=== PATIENT | male | born 1975 | race Caucasian/White ===

== ENCOUNTER 2019-01-15 21:15 | Observation (INO) | payer SELFPAY ==
[2019-01-15] MEDS ORDERED: 0.9 % SODIUM CHLORIDE 1,000 ML BAG IV ONE (22:48)
[2019-01-15] MEDS ORDERED: ONDANSETRON HCL IV 4 MG/2 ML VIAL IVP ONE (22:48)
[2019-01-15] MEDS ORDERED: MORPHINE SULFATE 10 MG/ML VIAL IVP ONE (22:48)
[2019-01-15 22:51] LABS: URINE APPEARANCE CLEAR; URINE BILIRUBIN NEGATIVE (NEGATIVE); URINE BLOOD NEGATIVE (NEGATIVE); URINE COLOR YELLOW; URINE GLUCOSE (UA) NEGATIVE (NEGATIVE); URINE KETONE NEGATIVE (NEGATIVE); URINE LEUKOCYTE ESTERASE NEGATIVE (NEGATIVE); URINE NITRITE NEGATIVE (NEGATIVE); URINE PROTEIN NEGATIVE (NEGATIVE); URINE UROBILINOGEN 0.2 E.U./dL (0.20 - 1.00)
[2019-01-15 22:51] LABS: BASO % 0.3 % (0-6); EOS % 1.3 % (0-6); GRAN % 64.8 % (47-80); HEMATOCRIT 46.7 % (42.0-52.0); HEMOGLOBIN 15.9 gm/dl (14.0-18.0); LYMPH % 26.5 % (16-45); MEAN CELL VOLUME 87.1 fl (81-97); MEAN CORPUSCULAR HEMOGLOBIN 29.7 pg (27-33); MEAN PLATELET VOLUME 9.8 fl (7.4-10.4); MONO % 7.1 % (0-9); PLATELET COUNT 289 K/uL (130-400); RED BLOOD COUNT 5.36 M/uL (4.40-5.70); RED CELL DISTRIBUTION WIDTH 12.6 % (11.5-14.5); WHITE BLOOD COUNT W/O DIFF 9.2 K/uL (4.2-12.2)
--- NOTE | 2019-01-15 22:52 | Emergency Department Record ---
History of Present Illness - General Stated Complaint: ABD PAIN Time Seen by Provider: 01/15/19 22:47 Source: Patient, Family Mode of Arrival: Ambulatory Limitations: No limitations - History of Present Illness Initial Comments: 43 yo male presents with lower abdominal pain for the last 3-4 days. He has a history of diverticulosis and diverticulitis over the last 8 years. He has had aching pain for the last 3-4 days with some loose stools. He empirically started Amoxicillin without improvement. His PCP is in [facility]. MD Complaint: Abdominal pain -: Days(s) (3) Location: LLQ Radiation: LLQ Migration to: LLQ Quality: Aching Consistency: Constant Improves With: Nothing Worsens With: Eating Associated Symptoms: Anorexia, Diarrhea (5-6 stools per day) - Related Data Home Medications Medication Instructions Recorded Confirmed Last Taken Amoxicillin/Potassium Clav 1 tab PO BID 01/15/19 01/15/19 01/15/19 [Amox-Clav 875-125 mg Tablet] Allergies Allergy/AdvReac Type Severity Reaction Status Date / Time No Known Drug Allergies Allergy Verified 01/15/19 23:05 Review of Systems Constitutional: Reports: Chills, Fever, Malaise Eyes: Denies: Eye discharge, Eye pain, Photophobia, Vision change ENT: Denies: Congestion, Throat pain Respiratory: Denies: Cough, Dyspnea, Hemoptysis Cardiovascular: Reports: Palpitations (a few weeks ago. he was worked up by cardiology). Denies: Chest pain Endocrine: Reports: Fatigue Gastrointestinal: Reports: As per HPI, Abdominal pain, Diarrhea, Nausea. Denies : Vomiting Genitourinary: Denies: Dysuria, Frequency, Hematuria Musculoskeletal: Denies: Arthralgia, Back pain, Myalgia Skin: Denies: Bruising, Change in color, Rash Neurological: Denies: Headache Psychiatric: Denies: Anxiety Hematological/Lymphatic: Denies: Blood Clots, Easy bleeding, Easy bruising, Swollen glands Physical Exam - General General Appearance: Alert, Oriented x3, Cooperative, No acute distress Limitations: No limitations - Head Head exam: Atraumatic, Normal inspection - Eye Eye exam: Normal appearance. negative: Conjunctival injection - ENT ENT exam: Normal exam Ear exam: Normal external inspection Nasal Exam: Normal inspection Mouth exam: Normal external inspection - Neck Neck exam: Normal inspection - Respiratory Respiratory exam: Normal lung sounds bilaterally. negative: Respiratory distress - Cardiovascular Cardiovascular Exam: Regular rate, Normal rhythm, Normal heart sounds - GI/Abdominal GI/Abdominal exam: Soft, Tenderness (tender LLQ but soft, normal appearance, obese). negative: Distended, Guarding - Rectal Rectal exam: Deferred - exam: Deferred - Extremities Extremities exam: Normal inspection, Full ROM, Normal capillary refill. negative: Tenderness - Back Back exam: Denies: CVA tenderness (R), CVA tenderness (L) - Neurological Neurological exam: Alert - Psychiatric Psychiatric exam: Normal affect, Normal mood. negative: Agitated, Anxious - Skin Skin exam: Dry, Intact, Normal color, Warm Course Vital Signs 01/15/19 22:36 Temperature 98 F Pulse Rate [ 63 Pulse Ox Probe] Respiratory 18 Rate Blood Pressure 150/94 [Left Arm] Pulse Ox 97 - Reevaluation(s) Reevaluation #1: 01/15/19 23:12 The labs were reviewed No acute changes on the CBC, CMP or Lipase The UA is normal without signs of infection 01/16/19 00:[address] impression was reviewed. 1. Fat containing hernia of the anterior midline abdominal wall. 2. Focal wall thickening and inflammatory changes about the mid sigmoid with adjacent adenopathy. Diverticulitis is the leading consideration, however there are features that are concerning for potential primary adenocarcenoma in this patient. sigmoidoscopy warranted after the acute changes have subsided. 01/16/19 01:11 The radiologist contacted me regarding the results. I informed the patient of the results and the need to rule out a cancerous mass as well with sigmoidoscopy once the acute episode has resolved. Given his pain after 4 days of outpatient antibiotics he will be admitted for clear fluids, IV antibiotics. 01/16/19 06:20 Medical Decision Making - Lab Data Result diagrams: 01/15/19 22:40 01/15/19 22:40 Disposition Disposition: Admit Clinical Impression: Diverticulitis Abdominal pain Qualifiers: Abdominal location: unspecified location Qualified Code(s): R10.9 - Unspecified abdominal pain Disposition: Still a Patient at [facility] Decision to Admit: Admit from ER Decision to Admit Date: 01/16/19 Decision to Admit Time: 01:02 Condition: (2) Stable Time of Disposition: 01:02 Quality - Quality Measures Quality Measures: N/A - Blood Pressure Screening Does Patient Have Any of the Following: No Blood Pressure Classification: Pre-Hypertensive BP Reading Systolic Measurement: 147 Diastolic Measurement: 81 Screening for High Blood Pressure: < Pre-Hypertensive BP, F/U Documented > [ G8950] Pre-Hypertensive Follow-up Interventions: Referral to alternative/primary care provider.
[2019-01-15 23:00] LABS: BLOOD UREA NITROGEN 16 mg/dL (6-20); EST GLOMERULAR FILTRATION RATE > 60 mL/min
[2019-01-15 23:01] LABS: LIPASE 31 U/L (13-60); TOTAL PROTEIN 7.7 g/dL (6.6-8.7)
[2019-01-15 23:03] LABS: GLUCOSE,RANDOM 89 mg/dL (74-109)
[2019-01-15 23:05] LABS: ALB/GLOB RATIO 1.2 (1.1-1.8); ALBUMIN 4.2 g/dL (4.0-5.0); ALT/SGPT 29 U/L (<41); AST/SGOT 20 U/L (10.0-50.0)
[2019-01-15 23:06] LABS: ALKALINE PHOSPHATASE 79 U/L (40-129)
[2019-01-16] MEDS ORDERED: METRONIDAZOLE IVPB 500 MG/100 ML BAG IVPB ONE (01:02)
--- NOTE | 2019-01-16 01:06 | Emergency Department Record ---
History of Present Illness - General Chief Complaint: Abdominal Pain Stated Complaint: ABD PAIN Time Seen by Provider: 01/15/19 22:47 Source: Patient, Family Mode of Arrival: Ambulatory Limitations: No limitations - History of Present Illness MD Complaint: Abdominal pain Onset/Timin -: Days(s) (3) Location: LLQ Radiation: LLQ Migration to: LLQ Severity: Moderate Severity scale (1-10): 3 Quality: Aching Consistency: Constant Improves With: Nothing Worsens With: Eating Context: Recent antibiotic use, Other Associated Symptoms: Anorexia, Diarrhea (5-6 stools per day) Treatments Prior to Arrival: Other - Related Data Home Medications Medication Instructions Recorded Confirmed Last Taken Amoxicillin/Potassium Clav 1 tab PO BID 01/15/19 01/15/19 01/15/19 [Amox-Clav 875-125 mg Tablet] Allergies Allergy/AdvReac Type Severity Reaction Status Date / Time No Known Drug Allergies Allergy Verified 01/15/19 23:05 Travel Screening - Travel/Exposure Within Last 30 Days Have you traveled within the last 30 days?: No - Travel/Exposure Within Last Year Have you traveled outside the [place] in the last year?: No - Additonal Travel Details Have you been exposed to anyone with a communicable illness?: No - Travel Symptoms Symptom Screening: None Review of Systems Constitutional: Reports: Chills, Fever, Malaise Eyes: Denies: Eye discharge, Eye pain, Photophobia, Vision change ENT: Denies: Congestion, Throat pain Respiratory: Denies: Cough, Dyspnea, Hemoptysis Cardiovascular: Reports: Palpitations (a few weeks ago. he was worked up by cardiology). Denies: Chest pain Endocrine: Reports: Fatigue Gastrointestinal: Reports: As per HPI, Abdominal pain, Diarrhea, Nausea. Denies : Vomiting Genitourinary: Denies: Dysuria, Frequency, Hematuria Musculoskeletal: Denies: Arthralgia, Back pain, Myalgia Skin: Denies: Bruising, Change in color, Rash Neurological: Denies: Headache Psychiatric: Denies: Anxiety Hematological/Lymphatic: Denies: Blood Clots, Easy bleeding, Easy bruising, Swollen glands Past Medical History - SOCIAL HISTORY Smoking Status: Never smoker Alcohol Use: Heavy Alcohol Use Comment: daily - quit one month ago Drug Use: None - RESPIRATORY Hx Respiratory Disorders: No - CARDIOVASCULAR Hx Cardio Disorders: No - NEURO Hx Neuro Disorders: No - GI Hx GI Disorders: Yes Hx Diverticulitis: Yes - Hx Genitourinary Disorders: No - ENDOCRINE Hx Endocrine Disorders: No - MUSCULOSKELETAL Hx Musculoskeletal Disorders: No - PSYCH Hx Psych Problems: No - HEMATOLOGY/ONCOLOGY Hx Hematology/Oncology Disorders: No Family Medical History Any Significant Family History?: No Physical Exam - General Limitations: No limitations Course Vital Signs 01/15/19 01/15/19 22:36 23:34 Temperature 98 F Pulse Rate [ 63 64 Pulse Ox Probe] Respiratory 18 16 Rate Blood Pressure 150/94 [Left Arm] Blood Pressure 145/89 [Right Arm] Pulse Ox 97 99 Medical Decision Making - Lab Data Result diagrams: 01/15/19 22:40 01/15/19 22:40 Lab Results 01/15/19 01/15/19 01/15/19 Range/Units 20:40 22:40 22:40 WBC 9.2 (4.2-12.2) K/uL RBC 5.36 (4.40-5.70) M/uL Hgb 15.9 (14.0-18.0) gm/dl Hct 46.7 (42.0-52.0) % MCV 87.1 (81-97) fl MCH 29.7 (27-33) pg MCHC 34.0 (32-36) g/dl RDW 12.6 (11.5-14.5) % Plt Count 289 (130-400) K/uL MPV 9.8 (7.4-10.4) fl Gran % 64.8 (47-80) % Lymphocytes % 26.5 (16-45) % Monocytes % 7.1 (0-9) % Eosinophils % 1.3 (0-6) % Basophils % 0.3 (0-6) % Sodium 139 (136-145) mmol/L Potassium 4.2 (3.4-4.5) mmol/L Chloride 102 (98-107) mmol/L Carbon Dioxide 24.0 (22-29) mmol/L Anion Gap 13.0 (7-16) BUN 16 (6-20) mg/dL Creatinine 1.0 (0.7-1.2) mg/dL Estimated GFR > 60 mL/min Random Glucose 89 (74-109) mg/dL Calcium 9.4 (8.6-10.0) mg/dL Total Bilirubin 0.30 (0.2-1.0) mg/dL AST 20 (10.0-50.0) U/L ALT 29 (<41) U/L Alkaline Phosphatase 79 (40-129) U/L Total Protein 7.7 (6.6-8.7) g/dL Albumin 4.2 (4.0-5.0) g/dL Globulin 3.5 (1.4-4.8) gm/dL Albumin/Globulin Ratio 1.2 (1.1-1.8) Lipase 31 (13-60) U/L Urine Color Yellow Urine Appearance Clear Urine pH 5.5 (5.0-8.0) Ur Specific Aubrey >= 1.030 (1.002-1.030) Urine Protein Negative (NEGATIVE) Urine Glucose (UA) Negative (NEGATIVE) Urine Ketones Negative (NEGATIVE) Urine Blood Negative (NEGATIVE) Urine Nitrite Negative (NEGATIVE) Urine Bilirubin Negative (NEGATIVE) Urine Urobilinogen 0.2 (0.20 - 1.00) E.U./dL Ur Leukocyte Esterase Negative (NEGATIVE) Disposition Disposition: Admit Clinical Impression: Diverticulitis Abdominal pain Qualifiers: Abdominal location: unspecified location Qualified Code(s): R10.9 - Unspecified abdominal pain Disposition: Still a Patient at [facility] Decision to Admit: Admit from ER Decision to Admit Date: 01/16/19 Decision to Admit Time: 01:00 Condition: (2) Stable Time of Disposition: 01:00 Quality - Quality Measures Quality Measures: N/A - Blood Pressure Screening Does Patient Have Any of the Following: No Blood Pressure Classification: Pre-Hypertensive BP Reading Systolic Measurement: 147 Diastolic Measurement: 81 Screening for High Blood Pressure: < Pre-Hypertensive BP, F/U Documented > [ G8950] Pre-Hypertensive Follow-up Interventions: Referral to alternative/primary care provider.
[2019-01-16] MEDS ORDERED: MORPHINE SULFATE 10 MG/ML VIAL IVP PRN (01:45)
[2019-01-16] MEDS ORDERED: ONDANSETRON HCL IV 4 MG/2 ML VIAL IVP PRN (01:45)
[2019-01-16] MEDS: POTASSIUM CHLORIDE/D5-0.9%NACL 20 MEQ/1,000 ML BAG IV SCH ×4 (02:15→22:30)
[2019-01-16] MEDS: CIPROFLOXACIN LACTATE/D5W 400 MG/200 ML BAG IVPB SCH ×2 (02:26→15:20)
[2019-01-16] MEDS: METRONIDAZOLE IVPB 500 MG/100 ML BAG IVPB SCH ×2 (09:04→17:35)
--- NOTE | 2019-01-16 11:37 | History & Physical ---
History of Present Illness - Date of Service Date of Service for History & Physical: 01/16/19 - History of Present Illness Admitting Diagnosis: diverticulitis History of Present Illness: 43 yo male presents for diverticulitis with questionable sigmoid mass. 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 Pt has PCP in [place], gets amoxicillin PRN for diverticulitis flares he has 3 per year. 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 01/15/19 Pt presented to [facility] for abd pain, 4 days diarrhea, and nausea. CT shows diverticulitis with microperforations. Sigmoid wall thickening for 7cm , surrounding lump nodes reactive. Possible mass noted with increased number of enlarged lymph nodes ("more numerous than is typical"). Umbilical hernia noted with fat streaking that has "extensive inflammation putamen" but no bowel involvement. WBC 9.2, Hgb 15.9, Hct 46.7, Plt 289 Na 139, K 4.2, BUN 16, Cr 1, GFR >60, glucose 89, LFT normal, lipase 31. UA negative 98F, Hr 63, 150/94, RR 18m, 97% RA pain 12/12 Pt was given 1 L NC, started on cipro 400mg q12h, flaygl 500mg Q8h, morphine 5mg IVP Q4h, zofran 4mg ICP, and cont IVF D5NS with 20K CLD 01/16/19 Pt resting in bed, no acute distress, moving in bed with no difficulties. Pt is tolerating CLD, IVF, and morphine 5mg IVP last dose 8AM. Decreasing morphine to 2mg IVP q4h, continue CLD and consulting Dr Miller for GI r /t infection and possible mass. Continue cipro and flagyl IVPB, zofran PRN. Repeat labs in the AM. Pt is reporting 1 episode of BRB on tissue when wiping 3 days ago but no blood since then. Awaiting GI call back . Additional complications related to difficulties with follow up and insurance issues, will contact care coordinators thursday AM. PCP ([place]) Travel Screening - Travel/Exposure Within Last 30 Days Have you traveled within the last 30 days?: No - Travel/Exposure Within Last Year Have you traveled outside the [place] in the last year?: No - Additonal Travel Details Have you been exposed to anyone with a communicable illness?: No - Travel Symptoms Symptom Screening: Fever (Subjective), Diarrhea, Lack of Appetite Review of Systems Constitutional: Reports: Chills, Fever, Malaise Eyes: Denies: Eye discharge, Eye pain, Photophobia, Vision change ENT: Denies: Congestion, Throat pain Respiratory: Denies: Cough, Dyspnea, Hemoptysis Cardiovascular: Reports: Palpitations (a few weeks ago. he was worked up by cardiology). Denies: Chest pain Endocrine: Reports: Fatigue Gastrointestinal: Reports: As per HPI, Abdominal pain, Diarrhea, Nausea. Denies : Constipation, Hematemesis, Hematochezia, Melena, Vomiting Genitourinary: Denies: Dysuria, Frequency, Hematuria Musculoskeletal: Denies: Arthralgia, Back pain, Myalgia Skin: Denies: Bruising, Change in color, Rash Neurological: Denies: Headache Psychiatric: Denies: Anxiety Hematological/Lymphatic: Denies: Blood Clots, Easy bleeding, Easy bruising, Swollen glands Past Medical History - SOCIAL HISTORY Smoking Status: Never smoker Alcohol Use: None Drug Use: None - RESPIRATORY Hx Respiratory Disorders: No - CARDIOVASCULAR Hx Cardio Disorders: No - NEURO Hx Neuro Disorders: No Hx Headaches: Yes (s/p viral meningitis ) - GI Hx GI Disorders: Yes Hx Diverticulitis: Yes Hx Wt Loss/Wt Gain: Yes (Intentional weight loss approx 20#) - Hx Genitourinary Disorders: No - ENDOCRINE Hx Endocrine Disorders: No - MUSCULOSKELETAL Hx Musculoskeletal Disorders: No - PSYCH Hx Psych Problems: No - HEMATOLOGY/ONCOLOGY Hx Hematology/Oncology Disorders: No Family Medical History Any Significant Family History?: Yes Hx Cancer: Father *Cancer Comment: Colon CA age 65 H&P Meds/Allergies - Allergies Allergies: Allergies Allergy/AdvReac Type Severity Reaction Status Date / Time No Known Drug Allergies Allergy Verified 01/15/19 23:05 - Home Medications Home Medications Medication Instructions Recorded Confirmed Last Taken Amoxicillin/Potassium Clav 1 tab PO BID 01/15/19 01/15/19 01/15/19 [Amox-Clav 875-125 mg Tablet] - Active Medications Active Medications: Current Medications Ciprofloxacin Lactate (Cipro) 400 mg in 200 mls @ 200 mls/hr IVPB Q12H [facility] Stop: 04/19/19 03:01 Last Infusion: 01/16/19 03:30 Dose: Infused Metronidazole/Sodium Chloride (Flagyl) 500 mg in 100 mls @ 100 mls/hr IVPB Q8H [facility] Stop: 01/21/19 09:01 Last Infusion: 01/16/19 10:12 Dose: Infused Potassium Chloride/Dextrose/Sod Cl () 20 meq in 1,000 mls @ 125 mls/hr IV Q8H [facility] Last Admin: 01/16/19 02:15 Dose: 125 mls/hr Morphine Sulfate (Morphine Sulfate) 5 mg IVP Q4H PRN PRN Reason: ABDOMINAL PAIN Last Admin: 01/16/19 07:56 Dose: 5 mg Ondansetron HCl (Zofran) 4 mg IVP Q4H PRN PRN Reason: NAUSEA Physical Exam - Vital Signs Vital Signs: Vital Signs - Last 24 Hrs Temp Pulse Pulse Resp BP BP BP 01/16/19 08:16 97.8 F 59 L 16 125/65 01/16/19 01:39 98 F 87 18 147/81 01/16/19 01:35 98.5 F 60 18 119/72 01/15/19 23:34 64 16 145/89 01/15/19 22:36 98 F 63 18 150/94 Pulse Ox 01/16/19 08:16 96 01/16/19 01:39 99 01/16/19 01:35 98 01/15/19 23:34 99 01/15/19 22:36 97 - General General Appearance: Alert, Oriented x3, Cooperative, No acute distress Limitations: No limitations - Head Head exam: Atraumatic, Normal inspection - Eye Eye exam: Normal appearance. negative: Conjunctival injection - ENT ENT exam: Normal exam Ear exam: Normal external inspection Nasal Exam: Normal inspection Mouth exam: Normal external inspection - Neck Neck exam: Normal inspection - Respiratory Respiratory exam: Normal lung sounds bilaterally. negative: Respiratory distress - Cardiovascular Cardiovascular Exam: Regular rate, Normal rhythm, Normal heart sounds Peripheral Pulses: 2+: Radial (R), Radial (L) - GI/Abdominal GI/Abdominal exam: Soft, Normal bowel sounds, Hernia (ventral, soft dip noted with palpation, bulging with flexing of abd muscles), Tenderness, Other (no TTP , normal appearance, obese). negative: Distended, Guarding - Rectal Rectal exam: Deferred - exam: Deferred - Extremities Extremities exam: Normal inspection, Full ROM, Normal capillary refill. negative: Tenderness - Back Back exam: Denies: CVA tenderness (R), CVA tenderness (L) - Neurological Neurological exam: Alert - Psychiatric Psychiatric exam: Normal affect, Normal mood. negative: Agitated, Anxious - Skin Skin exam: Dry, Intact, Normal color, Warm Results - Labs Result Diagrams: 01/15/19 22:40 01/15/19 22:40 Labs Last 24 Hours: Laboratory Results - last 24 hr 01/15/19 01/15/19 01/15/19 20:40 22:40 22:40 WBC 9.2 RBC 5.36 Hgb 15.9 Hct 46.7 MCV 87.1 MCH 29.7 MCHC 34.0 RDW 12.6 Plt Count 289 MPV 9.8 Gran % 64.8 Lymphocytes % 26.5 Monocytes % 7.1 Eosinophils % 1.3 Basophils % 0.3 Sodium 139 Potassium 4.2 Chloride 102 Carbon Dioxide 24.0 Anion Gap 13.0 BUN 16 Creatinine 1.0 Estimated GFR > 60 Random Glucose 89 Calcium 9.4 Total Bilirubin 0.30 AST 20 ALT 29 Alkaline Phosphatase 79 Total Protein 7.7 Albumin 4.2 Globulin 3.5 Albumin/Globulin Ratio 1.2 Lipase 31 Urine Color Yellow Urine Appearance Clear Urine pH 5.5 Ur Specific Kerrick >= 1.030 Urine Protein Negative Urine Glucose (UA) Negative Urine Ketones Negative Urine Blood Negative Urine Nitrite Negative Urine Bilirubin Negative Urine Urobilinogen 0.2 Ur Leukocyte Esterase Negative - Imaging and Cardiology CT scan - abdomen Status: Report reviewed VTE H&P Assessment - Risk for VTE Risk for VTE: Yes Risk Level: Moderate Risk Assessment Date: 01/16/19 Risk Assessment Time: 11:41 VTE Orders Placed or Will Be Placed: No VTE Reason for No Prophylaxis: Contraindicated (microperforations r/t diverticulitis infection) Plan - Detailed Diagnosis and Plan (1) Diverticulitis Current Visit: Yes Status: Acute Base Code: K57.92 - DVTRCLI OF INTEST, PART UNSP, W/O PERF OR ABSCESS W/O BLEED Comment: 01/16/19 -CT reveals diverticulitis -cipro q12 H, flaygl q8h -zofran and morphine PRN -continue CLD, Dr Miller GI consulted (2) Abdominal pain Current Visit: Yes Status: Acute Qualifiers: Abdominal location: unspecified location Qualified Code(s): R10.9 - Unspecified abdominal pain Base Code: R10.9 - UNSPECIFIED ABDOMINAL PAIN Comment: 01/16/19 -abd pain x 8 yrs, hernia repair 2010 - CT reveals umbilical hernia, may need gen surgery consult f/u -chronic diverticulitis q3/year tx by PCP (3) Hernia Current Visit: Yes Status: Acute Base Code: K46.9 - UNSPECIFIED ABDOMINAL HERNIA WITHOUT OBSTRUCTION OR GANGRENE Comment: 01/16/19 -pt has ventral hernia, currently not incarcerated but abd wall weakness noted with palpation -pt is reporting incarcertion at times -CT shows umbilical hernia with fat streaking consistent with fat nercrosis and chronic abd pain (4) Full code status Current Visit: Yes Status: Acute Base Code: Z78.9 - OTHER SPECIFIED HEALTH STATUS Comment: 01/16/19 -full code (5) DVT prophylaxis Current Visit: Yes Status: Acute Base Code: [id number] - Comment: 01/16/19 SCDs while in bed, no lovenox r/t microperforations noted on CT
[2019-01-16] MEDS ORDERED: MORPHINE SULFATE 10 MG/ML VIAL IM PRN (11:54)
[2019-01-17] MEDS: METRONIDAZOLE IVPB 500 MG/100 ML BAG IVPB SCH ×2 (01:08→09:15)
[2019-01-17] MEDS: CIPROFLOXACIN LACTATE/D5W 400 MG/200 ML BAG IVPB SCH (02:55)
--- NOTE | 2019-01-17 07:28 | CT SCAN REPORT ---
EXAM: CT OF THE ABDOMEN AND PELVIS WITH CONTRAST HISTORY: THIS IS A 43-YEAR-OLD MALE WITH ABDOMINAL PAIN IN THE PERIUMBILICAL REGION. PREVIOUS HERNIA REPAIR. THE PAIN HAS BEEN PRESENT FOR APPROXIMATELY SEVEN DAYS. PATIENT ALSO COMPLAINS OF DIARRHEA. TECHNIQUE: Routine CT images of the abdomen and pelvis were obtained following intravenous administration of contrast, amount and type of contrast is noted in the medical record. FINDINGS: The visualized lung bases are unremarkable. The liver, gallbladder, pancreas, spleen and adrenals are unremarkable. The kidneys enhance and excrete contrast normally. There is a focal region of wall thickening involving the sigmoid colon with surrounding mesocolonic fat stranding. Given that there are a few adjacent colonic diverticula findings suggest diverticulitis. Other infectious or inflammatory processes are also possible. Underlying mass not excluded and follow-up is recommended. Elsewhere, the bowel is unremarkable. The appendix is near the inflammatory change located a bit superiorly though no conclusive evidence for acute appendicitis. The bladder is unremarkable as is the prostate. The aorta enhances normally with contrast and is normal in caliber. There are a few mildly prominent scattered mesenteric lymph nodes which can be seen with mesenteric adenitis. There is a fat containing periumbilical hernia. Fascial defect measures approximately 1.6 x 1.6 cm. The herniated fat demonstrates fat stranding and inflammatory change which can be seen with fat necrosis. There are small bilateral fat containing inguinal hernias, left greater than right. No acute osseous abnormality. IMPRESSION: 1. FOCAL PRESUMED INFLAMMATORY CHANGE IN THE REGION OF THE SIGMOID COLON. THIS COULD RELATE TO DIVERTICULITIS VERSUS OTHER LOCALIZED INFECTIOUS/ INFLAMMATORY CHANGE. PLEASE NOTE UNDERLYING MASS IN THIS REGION NOT EXCLUDED AND FOLLOW-UP IS RECOMMENDED. 2. FAT CONTAINING PERIUMBILICAL HERNIA CONTAINING FAT STRANDING SUGGESTING FAT NECROSIS AND MAY BE A SOURCE OF PAIN. 3. MESENTERIC ADENITIS. JOB NUMBER: [id number] [facility]
[2019-01-17 08:31] LABS: BASO % 0.3 % (0-6); EOS % 1.6 % (0-6); GRAN % 71.1 % (47-80); HEMATOCRIT 42.1 % (42.0-52.0); HEMOGLOBIN 14.3 gm/dl (14.0-18.0); LYMPH % 20.2 % (16-45); MEAN CELL VOLUME 88.4 fl (81-97); MEAN PLATELET VOLUME 9.2 fl (7.4-10.4); MONO % 6.8 % (0-9); PLATELET COUNT 242 K/uL (130-400); RED BLOOD COUNT 4.76 M/uL (4.40-5.70); RED CELL DISTRIBUTION WIDTH 12.5 % (11.5-14.5); WHITE BLOOD COUNT W/O DIFF 6.8 K/uL (4.2-12.2)
[2019-01-17 08:53] LABS: BLOOD UREA NITROGEN 9 mg/dL (6-20); CREATININE 0.9 mg/dL (0.7-1.2); EST GLOMERULAR FILTRATION RATE > 60 mL/min
[2019-01-17 08:56] LABS: GLUCOSE,RANDOM 114 mg/dL (74-109)
[2019-01-17] MEDS ORDERED: METRONIDAZOLE 250 MG TABLET PO SCH (12:00)
[2019-01-17] MEDS ORDERED: CIPROFLOXACIN HCL 500 MG TABLET PO SCH (12:00)
--- NOTE | 2019-01-17 12:09 | Discharge Summary ---
Providers Discharge Summary Date: 01/17/19 Date of admission: 01/16/19 01:14 Expected Date of Discharge: 01/17/19 Attending physician: SRIKANTH HARRIS Primary care physician: PCP in [place] Consults: Consult Orders 01/16/19 11:55 Consult NOW Consulting Provider: JOSE GAY Physician Instructions: Reason For Exam: diverticulitis and possible mass 01/16/19 16:47 Consult NOW Consulting Provider: Theresa Shipman Physician Instructions: Reason For Exam: abd pain 01/17/19 10:49 Consult NOW Consulting Provider: Nba Mckoy Physician Instructions: Reason For Exam: Diverticulitis with possible mass Physical Exam - Vital Signs Vital Signs: Vital Signs - Last 24 Hrs Temp Pulse Resp BP Pulse Ox 01/17/19 09:00 65 16 01/17/19 08:42 97.9 F 65 16 119/75 95 01/17/19 01:00 98.1 F 61 16 122/82 98 01/16/19 16:00 97.7 F 61 17 126/72 93 L - General General Appearance: Alert, Oriented x3, Cooperative, No acute distress Limitations: No limitations - Head Head exam: Atraumatic, Normocephalic, Normal inspection - Eye Eye exam: Normal appearance. negative: Conjunctival injection - ENT ENT exam: Normal exam Ear exam: Normal external inspection Nasal Exam: Normal inspection Mouth exam: Normal external inspection - Neck Neck exam: Normal inspection - Respiratory Respiratory exam: Normal lung sounds bilaterally. negative: Respiratory distress - Cardiovascular Cardiovascular Exam: Regular rate, Normal rhythm, Normal heart sounds Peripheral Pulses: 2+: Radial (R), Radial (L), Dorsalis Pedis (R), Dorsalis Pedis (L) - GI/Abdominal GI/Abdominal exam: Soft, Normal bowel sounds, Hernia (ventral, soft dip noted with palpation, bulging with flexing of abd muscles), Tenderness. negative: Distended, Guarding - Rectal Rectal exam: Deferred - exam: Deferred - Extremities Extremities exam: Normal inspection, Full ROM, Normal capillary refill. negative: Tenderness - Back Back exam: Denies: CVA tenderness (R), CVA tenderness (L) - Neurological Neurological exam: Alert - Psychiatric Psychiatric exam: Normal affect, Normal mood. negative: Agitated, Anxious - Skin Skin exam: Dry, Intact, Normal color, Warm Hospitalization - Hospitalization Admission Diagnosis: diverticulitis - Problem List/Discharge Diagnosis (1) Diverticulitis Current Visit: Yes Status: Acute Base Code: K57.92 - DVTRCLI OF INTEST, PART UNSP, W/O PERF OR ABSCESS W/O BLEED Comment: 01/17/19 -transition to Po abx, pt is vega pay, [employer] has free cipro and [facility] has discounts for flagyl and zofran -Dr Mckoy consulted, f/u 4 weeks in the office after 2 weeks of abx -f/u [facility] 2 weeks for inpt follow up 01/16/19 -CT reveals diverticulitis -cipro q12 H, flaygl q8h -zofran and morphine PRN -continue CLD, Dr Gay GI consulted (2) Abdominal pain Current Visit: Yes Status: Acute Discharge Diagnosis: Abdominal location: unspecified location Qualified Code(s): R10.9 - Unspecified abdominal pain Base Code: R10.9 - UNSPECIFIED ABDOMINAL PAIN Comment: 01/17/19 -pain has been baseline 01/12 or less, no morphine has been needed -d/c with 2 weeks abx 01/16/19 -abd pain x 8 yrs, hernia repair 2010 - CT reveals umbilical hernia, may need gen surgery consult f/u -chronic diverticulitis q3/year tx by PCP (3) Hernia Current Visit: Yes Status: Acute Base Code: K46.9 - UNSPECIFIED ABDOMINAL HERNIA WITHOUT OBSTRUCTION OR GANGRENE Comment: 01/17/19 -baseline, Dr Mckoy consulted, to f/u outpt 01/16/19 -pt has ventral hernia, currently not incarcerated but abd wall weakness noted with palpation -pt is reporting incarcertion at times -CT shows umbilical hernia with fat streaking consistent with fat nercrosis and chronic abd pain (4) Full code status Current Visit: Yes Status: Acute Base Code: Z78.9 - OTHER SPECIFIED HEALTH STATUS Comment: 01/17/19 -full code (5) DVT prophylaxis Current Visit: Yes Status: Acute Base Code: [id number] - Comment: 01/17/19 SCDs while in bed, no lovenox r/t microperforations noted on CT - Hospitalization Course Disposition: Home, Self-Care Hospital Course: 43 yo male presents for diverticulitis with questionable sigmoid mass. 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 Pt has PCP in [place], gets amoxicillin PRN for diverticulitis flares he has 3 per year. 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 01/15/[address] [facility] ER for abd pain, 4 days diarrhea, and nausea. CT shows diverticulitis with microperforations. Sigmoid wall thickening for 7cm , surrounding lump nodes reactive. Possible mass noted with increased number of enlarged lymph nodes ("more numerous than is typical"). Umbilical hernia noted with fat streaking that has "extensive inflammation putamen" but no bowel involvement. WBC 9.2, Hgb 15.9, Hct 46.7, Plt 289 Na 139, K 4.2, BUN 16, Cr 1, GFR >60, glucose 89, LFT normal, lipase 31. UA negative 98F, Hr 63, 150/94, RR 18m, 97% RA pain 12/12 Pt was given 1 L NC, started on cipro 400mg q12h, flaygl 500mg Q8h, morphine 5mg IVP Q4h, zofran 4mg ICP, and cont IVF D5NS with 20K CLD 01/16/19 Pt resting in bed, no acute distress, moving in bed with no difficulties. Pt is tolerating CLD, IVF, and morphine 5mg IVP last dose 8AM. Decreasing morphine to 2mg IVP q4h, continue CLD and consulting Dr Gay for GI r /t infection and possible mass. Continue cipro and flagyl IVPB, zofran PRN. Repeat labs in the AM. Pt is reporting 1 episode of BRB on tissue when wiping 3 days ago but no blood since then. Awaiting GI call back . Additional complications related to difficulties with follow up and insurance issues, will contact care coordinators thursday AM. PCP ([place]) Procedures: Imaging and X-Rays 01/15/19 22:48 ABDOMEN/PELVIS W CONTRAST [CT] Stat Abnormal Labs: Abnormal Lab Results 01/17/19 Range/Units 08:29 Random Glucose 114 H (74-109) mg/dL Calcium 8.3 L (8.6-10.0) mg/dL Condition at Discharge: (2) Stable Discharge Medications - Discharge Medications Prescriptions: Ciprofloxacin HCl [Cipro] 500 mg PO Q12HR 13 Days #26 tablet Home Medications: Ambulatory Orders Ciprofloxacin HCl [Cipro] 500 mg PO Q12HR 13 Days #26 tablet 01/17/19 [Last Taken Unknown] Metronidazole 500 mg PO Q8H 13 Days #39 tablet 01/17/19 [Last Taken Unknown] Ondansetron [Zofran Odt] 4 mg PO Q8H 4 Days #12 tab.rapdis 01/17/19 [Last Taken Unknown] Discharge Plan - Discharge Instructions Activity at Discharge: As Per Physical Therapy Diet at Discharge: Other (Low Residual diet, avoiding nuts, seeds, popcorn and low fiber) Quality Measures - Quality Measures Quality Measures: Documentation of Current Medications in Medical Record, Screening for High Blood Pressure and F/U Documented - Current Medications Quality Measure: Measure #130: Documentation of Current Medications - Blood Pressure Screening Quality Measure: Screening for High Blood Pressure and Follow-Up Documented Blood Pressure Classification: Pre-Hypertensive BP Reading Systolic Measurement: 147 Diastolic Measurement: 81 Screening for High Blood Pressure: < Pre-Hypertensive BP, F/U Documented > [ [id number]] - Elder Abuse Suspicion Index EASI Reference Information: Kamilla CALLAWAY, Domingo C, Travis D, Alejandro Maloney.Development and validation of a tool to assist physicians identification of elder abuse: The Elder Abuse Suspicion Index (EASI ). Journal of Elder Abuse and Neglect, 2008; 20 (3): 276-300.
== END 2019-01-17 14:45 | disposition home or self-care (01) ==
LOC: ER 21:15 → MEDSURG 01-16 01:14
PROVIDERS: ADMIT Internal Medicine; ATTEND Internal Medicine
DX: K57.92 Diverticulitis of intestine, part unspecified, without perforation or abscess without bleeding (principal); R19.7 Diarrhea, unspecified; K42.9 Umbilical hernia without obstruction or gangrene; Z86.61 Personal history of infections of the central nervous system
CPT/HCPCS: 99285 ×2; 96374; 96375; 96361; 83690; 85025 ×2; 80048; 80053; 81003; 74177; G0378 ×2; Q9967; J0744 ×2; J2405; J2270 ×2; 99217; 99220; J3480; J7030

== ENCOUNTER 2019-01-27 16:30 | Inpatient (IN) | payer SELFPAY ==
[2019-01-27] MEDS ORDERED: ACETAMINOPHEN 1,000 MG/100 ML BTL IVPB PRN (16:49)
[2019-01-27] MEDS ORDERED: HYDROMORPHONE HCL 2 MG/ML VIAL IVP PRN (16:49)
[2019-01-27 17:17] LABS: BASO % 0.7 % (0-6); EOS % 1.7 % (0-6); HEMATOCRIT 44.6 % (42.0-52.0); HEMOGLOBIN 15.4 gm/dl (14.0-18.0); LYMPH % 18.1 % (16-45); MEAN CELL VOLUME 87.1 fl (81-97); MEAN CORPUSCULAR HEMOGLOBIN 30.1 pg (27-33); MEAN CORPUSCULAR HGB CONC 34.5 g/dl (32-36); MEAN PLATELET VOLUME 9.9 fl (7.4-10.4); MONO % 6.5 % (0-9); PLATELET COUNT 248 K/uL (130-400); RED BLOOD COUNT 5.12 M/uL (4.40-5.70); RED CELL DISTRIBUTION WIDTH 12.6 % (11.5-14.5); WHITE BLOOD COUNT W/O DIFF 6.9 K/uL (4.2-12.2)
[2019-01-27 17:31] LABS: BLOOD UREA NITROGEN 13 mg/dL (6-20); CREATININE 0.9 mg/dL (0.7-1.2); EST GLOMERULAR FILTRATION RATE > 60 mL/min
[2019-01-27 17:32] LABS: LIPASE 27 U/L (13-60); TOTAL PROTEIN 7.6 g/dL (6.6-8.7)
[2019-01-27 17:34] LABS: AMYLASE 50 U/L (28-100); GLUCOSE,RANDOM 87 mg/dL (74-109)
[2019-01-27 17:36] LABS: ALT/SGPT 86 U/L (<41)
[2019-01-27 17:37] LABS: ALB/GLOB RATIO 1.1 (1.1-1.8); ALKALINE PHOSPHATASE 72 U/L (40-129); AST/SGOT 44 U/L (10.0-50.0)
[2019-01-27 17:50] LABS: URINE APPEARANCE CLEAR; URINE BILIRUBIN SMALL (NEGATIVE); URINE BLOOD NEGATIVE (NEGATIVE); URINE COLOR YELLOW; URINE GLUCOSE (UA) NEGATIVE (NEGATIVE); URINE KETONE NEGATIVE (NEGATIVE); URINE LEUKOCYTE ESTERASE NEGATIVE (NEGATIVE); URINE NITRITE NEGATIVE (NEGATIVE); URINE PROTEIN TRACE (NEGATIVE); URINE UROBILINOGEN 0.2 E.U./dL (0.20 - 1.00)
[2019-01-27] MEDS: 0.9 % SODIUM CHLORIDE 1000ML 1,000 ML IV PRN (19:11)
--- NOTE | 2019-01-27 19:13 | History & Physical ---
History of Present Illness - Date of Service Date of Service for History & Physical: 01/27/19 - History of Present Illness Admitting Diagnosis: Abdominal pain. Failed outpatient treatment of diverticulitis History of Present Illness: Eyad Castro is a 43 y/o male directly admitted to the floor from his PCP appointment for worsening LLQ abdominal pain, fatigue, frequent stooling. He was recently hospitalized for diverticulitis about 2 weeks ago and was at PCP for hospital follow up. He told provider he has been having low grade fevers, no higher than 100 degrees, poor appetite, significant fatigue to the point of needing a nap after showering. He reports he is still taking PO Flagyl and Cipro as discharged with. During previous hospitalization 01/16/19-01/17/19, Dr Mckoy was consulted for diverticulitis, inflammatory changes to bowel and possible primary adenocarcinoma- it was recommended he have colonoscopy after current diverticulitis episode has resolved .then elective partial colectomy due to recurrent diverticulitis. He has a history of recurrent diverticulitis, about 3 times yearly, for the last 6-7 years with associated frequent stooling ( 15 times per day). Denies any blood in stool or nausea. Is not established with GI. Medical history includes current every day smoker, chronic headaches s/p viral meningitis, diverticulitis, hernia repair 2010. Will directly admit for repeat CT abdomen/pelvis, transition PO antibiotics to Cipro 500mg BID and Flagyl 500mg TID IVPB, labs, IV hydration, reconsult surgery and/GI based on CT abdomen/pelvis results. Of note, patient is a ve[employer] pay patient, financially challenged. He has not followed up with GI or surgery since discharge from recent hospitalization 01/27/19: sitting in chair in no distress. in attendance. Agrees with plan of care and understands based on CT results may need to be transferred to [facility] for further consultations and/or urgent needs. PCP: Theresa Shipman NP Travel Screening - Travel/Exposure Within Last 30 Days Have you traveled within the last 30 days?: No - Travel/Exposure Within Last Year Have you traveled outside the [place] in the last year?: No - Additonal Travel Details Have you been exposed to anyone with a communicable illness?: No - Travel Symptoms Symptom Screening: None Review of Systems Constitutional: Reports: Fever, Malaise. Denies: Chills, Night sweats, Weakness Eyes: Reports: As per HPI. Denies: Eye discharge, Eye pain, Photophobia, Vision change ENT: Reports: As per HPI. Denies: Congestion, Dental pain, Ear pain, Epistaxis , Hearing loss, Throat pain Respiratory: Denies: Cough, Dyspnea, Hemoptysis, Wheezes Cardiovascular: Denies: Arrhythmia, Chest pain, Edema, Palpitations, Syncope Endocrine: Reports: Fatigue Gastrointestinal: Reports: Abdominal pain, Diarrhea, Nausea. Denies: Hematemesis, Hematochezia, Melena, Vomiting Genitourinary: Denies: Dysuria, Frequency, Hematuria Musculoskeletal: Denies: Arthralgia, Back pain, Joint swelling Skin: Denies: Bruising, Lesions, Rash Neurological: Denies: Abnormal gait, Confusion, Headache, Tingling, Tremors, Weakness Psychiatric: Reports: As per HPI. Denies: Anxiety, Auditory hallucinations, Depression, Homicidal thoughts, Suicidal thoughts, Visual hallucinations Hematological/Lymphatic: Reports: As per HPI. Denies: Anemia, Blood Clots, Easy bleeding, Easy bruising, Swollen glands Past Medical History - SOCIAL HISTORY Smoking Status: Never smoker Alcohol Use: None Drug Use: None - RESPIRATORY Hx Respiratory Disorders: No - CARDIOVASCULAR Hx Cardio Disorders: No - NEURO Hx Neuro Disorders: No Hx Headaches: Yes (s/p viral meningitis ) - GI Hx GI Disorders: Yes Hx Diverticulitis: Yes - Hx Genitourinary Disorders: No - ENDOCRINE Hx Endocrine Disorders: No Hx Diabetes: No Hx Thyroid Disease: No - MUSCULOSKELETAL Hx Musculoskeletal Disorders: No - PSYCH Hx Psych Problems: No - HEMATOLOGY/ONCOLOGY Hx Hematology/Oncology Disorders: No Family Medical History Any Significant Family History?: Yes Hx Cancer: Father *Cancer Comment: Colon CA age 65 H&P Meds/Allergies - Allergies Allergies: Allergies Allergy/AdvReac Type Severity Reaction Status Date / Time No Known Drug Allergies Allergy Unverified 01/27/19 15:10 - Home Medications Previous Rx's Medication Instructions Recorded Ciprofloxacin HCl [Cipro] 500 mg PO Q12HR 13 Days #26 tablet 01/17/19 Metronidazole 500 mg PO Q8H 13 Days #39 tablet 01/17/19 Ondansetron [Zofran Odt] 4 mg PO Q8H 4 Days #12 tab.rapdis 01/17/19 - Active Medications Active Medications: Current Medications Hydromorphone HCl (Dilaudid) 0.5 mg IVP Q4H PRN PRN Reason: ABDOMINAL PAIN Sodium Chloride () 1,000 mls @ 125 mls/hr IV .Q8H PRN PRN Reason: LARGE VOLUME IV Acetaminophen (Ofirmev) 1,000 mg in 100 mls @ 400 mls/hr IVPB Q6H PRN PRN Reason: ABDOMINAL PAIN Ciprofloxacin Lactate (Cipro) 400 mg in 200 mls @ 200 mls/hr IVPB Q12H TINA Stop: 02/01/19 18:01 Metronidazole/Sodium Chloride (Flagyl) 500 mg in 100 mls @ 100 mls/hr IVPB Q8H TINA Stop: 02/01/19 17:01 Physical Exam - General General Appearance: Alert, Oriented x3, Cooperative, No acute distress Limitations: No limitations - Head Head exam: Atraumatic, Normocephalic - Eye Eye exam: Normal appearance - ENT ENT exam: Mucous membranes dry - Neck Neck exam: Normal inspection, Full ROM - Respiratory Respiratory exam: Normal lung sounds bilaterally - Cardiovascular Cardiovascular Exam: Regular rate, Normal rhythm, Normal heart sounds Peripheral Pulses: 2+: Radial (R), Radial (L) - GI/Abdominal GI/Abdominal exam: Soft, Hypoactive bowel sounds, Tenderness (RLQ, LUQ, LLQ) - Extremities Extremities exam: Normal inspection, Full ROM. negative: Pedal edema - Back Back exam: Reports: Normal inspection - Neurological Neurological exam: Alert, CN II-XII intact, Oriented X3 - Psychiatric Psychiatric exam: Normal affect, Normal mood - Skin Skin exam: Dry, Intact, Normal color, Warm Results - Labs Result Diagrams: 01/27/19 16:38 01/27/19 17:01 Labs Last 24 Hours: Laboratory Results - last 24 hr 01/27/19 01/27/19 01/27/19 16:38 17:01 17:15 WBC 6.9 RBC 5.12 Hgb 15.4 Hct 44.6 MCV 87.1 MCH 30.1 MCHC 34.5 RDW 12.6 Plt Count 248 MPV 9.9 Gran % 73.0 Lymphocytes % 18.1 Monocytes % 6.5 Eosinophils % 1.7 Basophils % 0.7 Sodium 136 Potassium 4.3 Chloride 102 Carbon Dioxide 24.0 Anion Gap 10.0 BUN 13 Creatinine 0.9 Estimated GFR > 60 Random Glucose 87 Lactic Acid 1.1 Calcium 9.0 Total Bilirubin 0.60 AST 44 ALT 86 H Alkaline Phosphatase 72 Total Protein 7.6 Albumin 4.0 Globulin 3.6 Albumin/Globulin Ratio 1.1 Amylase 50 Lipase 27 Urine Color Urine Appearance Urine pH Ur Specific Franklin Urine Protein Urine Glucose (UA) Urine Ketones Urine Blood Urine Nitrite Urine Bilirubin Urine Urobilinogen Ur Leukocyte Esterase 01/27/19 17:25 WBC RBC Hgb Hct MCV MCH MCHC RDW Plt Count MPV Gran % Lymphocytes % Monocytes % Eosinophils % Basophils % Sodium Potassium Chloride Carbon Dioxide Anion Gap BUN Creatinine Estimated GFR Random Glucose Lactic Acid Calcium Total Bilirubin AST ALT Alkaline Phosphatase Total Protein Albumin Globulin Albumin/Globulin Ratio Amylase Lipase Urine Color Yellow Urine Appearance Clear Urine pH 7.5 Ur Specific Franklin 1.025 Urine Protein Trace H Urine Glucose (UA) Negative Urine Ketones Negative Urine Blood Negative Urine Nitrite Negative Urine Bilirubin Small H Urine Urobilinogen 0.2 Ur Leukocyte Esterase Negative VTE H&P Assessment - Risk for VTE Risk for VTE: Yes Risk Level: Low Risk Assessment Date: 01/27/19 Risk Assessment Time: 19:33 VTE Orders Placed or Will Be Placed: Yes Plan - Inpatient Certification Inpatient Certification: Admit to inpatient care: Based on my medical assessment, after consideration of patient's risk factors (age, co-morbidities and patient presenting symptoms and acuity), I expect that this patient will remain in the hospital greater than or equal to two midnights and that the services needed warrant inpatient care because: Patient Risk Factors: [failed outpatient treatment diverticulitis, recent hospitalization] Estimated length of stay: [48-72 hours] The patient may reasonably be expected to be discharged or transferred to a hospital within 96 hours after admission to [facility]. Services needed: [IV fluids, IV antibiotics, repeat CT abdomen] Post hospital care (if known): [] I certify that my determination is in accordance with my understanding of Medicare requirements for reasonable and necessary inpatient services. 01/27/19 19:33 - Detailed Diagnosis and Plan (1) Abdominal pain Current Visit: No Status: Acute Qualifiers: Abdominal location: unspecified location Qualified Code(s): R10.9 - Unspecified abdominal pain Base Code: R10.9 - UNSPECIFIED ABDOMINAL PAIN Comment: 01/27/19 -pain has been baseline 4/10 or less, no morphine has been needed -d/c with 2 weeks abx 01/27/19 - Worsening of abdominal pain since discharge from inpatient hospitalization for diverticulitis - CT abdomen/pelvis - CBC, CMP, lactic acid - IV hydration NS @ 125ml/hr - Dilaudid 0.5mg Q4hr PRN abdominal pain - May need to transfer to [facility] if abscess or perforation on CT, patient is aware and is in agreement (2) Diverticulitis Current Visit: No Status: Acute Base Code: K57.92 - DVTRCLI OF INTEST, PART UNSP, W/O PERF OR ABSCESS W/O BLEED Comment: 01/27/19 - CT abdomen/pelvis (previous CT 01/16/19 revealed inflammed fat containing abdominal wall hernia, focal wall thickening and inflammatory changes about the mid sigmoid colon with adjacent adenopathy, concerns with diverticulitis but could not entirely exclude primary adenocarcinoma) - Repeat CT abdomen/pelvis with slight worsening of sigmoid wal thickenss and fat stranding, no other acute changes. Recommend follow up colonoscopy. -Cipro 500mg IVPB BID, Flagyl 500mg TID IVPB - IV hydration - Pain control -Dr Mckoy notified of continued abdominal pain, awaiting return call (3) DVT prophylaxis Current Visit: No Status: Acute Base Code: [id number] - Comment: 01/27/19 - Nursing to encourage frequent ambulation (4) Full code status Current Visit: No Status: Acute Base Code: Z78.9 - OTHER SPECIFIED HEALTH STATUS Comment: 01/27/19 -full code
[2019-01-27] MEDS: METRONIDAZOLE IVPB 500 MG/100 ML BAG IVPB SCH (19:51)
[2019-01-27] MEDS: CIPROFLOXACIN LACTATE/D5W 400 MG/200 ML BAG IVPB SCH (20:56)
[2019-01-28] MEDS: METRONIDAZOLE IVPB 500 MG/100 ML BAG IVPB SCH ×3 (01:44→16:17)
[2019-01-28] MEDS: CIPROFLOXACIN LACTATE/D5W 400 MG/200 ML BAG IVPB SCH ×2 (06:24→18:42)
[2019-01-28] MEDS: 0.9 % SODIUM CHLORIDE 1000ML 1,000 ML IV PRN ×2 (07:20→18:41)
--- NOTE | 2019-01-28 07:22 | CT SCAN REPORT ---
EXAM: CT OF THE ABDOMEN AND PELVIS WITH CONTRAST HISTORY: LEFT LOWER QUADRANT ABDOMINAL PAIN. TECHNIQUE: CT of the abdomen and pelvis was performed with 100 ml Omnipaque 300 intravenous contrast as well as oral contrast. Comparison: CT of the abdomen and pelvis 01/15/19. FINDINGS: Minimal bilateral lower lobe atelectasis. The lung bases are otherwise clear. Unremarkable appearance of the liver, gallbladder, spleen, adrenal glands, and pancreas. Symmetric renal perfusion. No hydronephrosis. Persistent thickened appearance of the sigmoid colon. Adjacent fat stranding is similar to minimally increased from prior. No new areas of colonic thickening or inflammation. The appendix is normal. Oral contrast material reaches the distal descending colon. The stomach and small bowel are not dilated. No free air. No free fluid. Similar appearance of midline supraumbilical ventral abdominal wall hernia containing only fat, abdominal wall defect measuring up to 16 mm. The urinary bladder is unremarkable. No acute osseous findings. The abdominal aorta has normal course and caliber. IMPRESSION: 1. PERSISTENTLY THICKENED APPEARANCE OF THE SIGMOID COLON WITH ADJACENT FAT STRANDING; DEGREE OF FAT STRANDING IS SIMILAR TO MINIMALLY INCREASED FROM COMPARISON ON 01/15/19. APPEARANCE SUGGESTIVE OF ACUTE DIVERTICULITIS. A COLONIC MASS COULD HAVE A SIMILAR APPEARANCE AND FOLLOW-UP WITH COLONOSCOPY IS RECOMMENDED WHEN CLINICALLY FEASIBLE. 2. NO NEW ACUTE FINDINGS IN THE ABDOMEN OR PELVIS. 3. SIMILAR APPEARANCE OF FAT CONTAINING SUPRAUMBILICAL VENTRAL ABDOMINAL WALL HERNIA WITH ASSOCIATED FAT STRANDING. JOB NUMBER: [id number] MTDD
--- NOTE | 2019-01-28 10:56 | Physician Progress Note ---
Subjective - Date Date of Physician Progress Note: 01/28/19 - Subjective Subjective Comment: No new nursing concerns overnight. Has remained afebrile. Is tolerating clear liquid diet. Does report continued LLQ pain, very tender to palpation. Is resistant to taking PRN pain medication stating "This is my usual, I just live with it". Denies nausea. Does state he has only moved his bowels twice since being here but reports he does not eat is he knows he is going to be away from the house. He reports has not eaten in about 2 days because he traveled 2 hours yesterday between a couple locations. Objective - Vital Signs Vital Signs: Vital Signs - Last 24 Hrs Temp Pulse Resp BP Pulse Ox 01/28/19 09:10 97.8 F 67 16 122/71 95 01/28/19 00:38 98.8 F 61 18 109/72 97 01/27/19 16:38 98.8 F 63 16 143/91 94 L - General General Appearance: Alert, Oriented x3, Cooperative, No acute distress Limitations: No limitations - Head Head exam: Atraumatic, Normocephalic - Eye Eye exam: Normal appearance - ENT ENT exam: Mucous membranes dry - Neck Neck exam: Normal inspection, Full ROM - Respiratory Respiratory exam: Normal lung sounds bilaterally - Cardiovascular Cardiovascular Exam: Regular rate, Normal rhythm, Normal heart sounds Peripheral Pulses: 2+: Radial (R), Radial (L) - GI/Abdominal GI/Abdominal exam: Soft, Hypoactive bowel sounds, Tenderness (RLQ, LUQ, LLQ) - Extremities Extremities exam: Normal inspection, Full ROM. negative: Pedal edema - Back Back exam: Reports: Normal inspection - Neurological Neurological exam: Alert, CN II-XII intact, Oriented X3 - Psychiatric Psychiatric exam: Normal affect, Normal mood - Skin Skin exam: Dry, Intact, Normal color, Warm Assessment and Plan - Assessment and Plan (1) Abdominal pain Current Visit: No Status: Acute Qualifiers: Abdominal location: unspecified location Qualified Code(s): R10.9 - Unspecified abdominal pain Base Code: R10.9 - UNSPECIFIED ABDOMINAL PAIN Comment: 01/28/19 - Worsening of abdominal pain since discharge from inpatient hospitalization for diverticulitis, pain is the same this am - CT abdomen/pelvis- minimal worsening of previous signomid wall thickening with surrounding fat stranding, still concern with potential of adenocarcinoma - CBC, CMP, lactic acid- unremarkable - IV hydration NS @ 125ml/hr - Dilaudid 0.5mg Q4hr PRN abdominal pain - Consultation with Dr Mckoy today for long-term plan and concerns with worsening of CT findings after IV and PO treatment of diverticulitis (2) Diverticulitis Current Visit: No Status: Acute Base Code: K57.92 - DVTRCLI OF INTEST, PART UNSP, W/O PERF OR ABSCESS W/O BLEED Comment: 01/28/19 - CT abdomen/pelvis (previous CT 01/16/19 revealed inflammed fat containing abdominal wall hernia, focal wall thickening and inflammatory changes about the mid sigmoid colon with adjacent adenopathy, concerns with diverticulitis but could not entirely exclude primary adenocarcinoma) - Repeat CT abdomen/pelvis with slight worsening of sigmoid wal thickenss and fat stranding, no other acute changes. Recommend follow up colonoscopy. -Cipro 500mg IVPB BID, Flagyl 500mg TID IVPB - IV hydration - Pain control - Consult with Dr Mckoy today- recommends continued IV Flagyl/Cipro x 24 more hours then can DC home tomorrow on 2 week course of PO Flagyl/Cipro. Follow up in his office in 2 weeks. (3) DVT prophylaxis Current Visit: Yes Status: Acute Base Code: [id number] - Comment: 01/28/19 - Nursing to encourage frequent ambulation (4) Full code status Current Visit: Yes Status: Acute Base Code: Z78.9 - OTHER SPECIFIED HEALTH STATUS Comment: 01/28/19 -full code Results - Labs Result Diagrams: 01/27/19 16:38 01/27/19 17:01 Labs Last 24 Hours: Laboratory Results - last 24 hr 01/27/19 01/27/19 01/27/19 16:38 17:01 17:15 WBC 6.9 RBC 5.12 Hgb 15.4 Hct 44.6 MCV 87.1 MCH 30.1 MCHC 34.5 RDW 12.6 Plt Count 248 MPV 9.9 Gran % 73.0 Lymphocytes % 18.1 Monocytes % 6.5 Eosinophils % 1.7 Basophils % 0.7 Sodium 136 Potassium 4.3 Chloride 102 Carbon Dioxide 24.0 Anion Gap 10.0 BUN 13 Creatinine 0.9 Estimated GFR > 60 Random Glucose 87 Lactic Acid 1.1 Calcium 9.0 Total Bilirubin 0.60 AST 44 ALT 86 H Alkaline Phosphatase 72 Total Protein 7.6 Albumin 4.0 Globulin 3.6 Albumin/Globulin Ratio 1.1 Amylase 50 Lipase 27 Urine Color Urine Appearance Urine pH Ur Specific [place] Urine Protein Urine Glucose (UA) Urine Ketones Urine Blood Urine Nitrite Urine Bilirubin Urine Urobilinogen Ur Leukocyte Esterase 01/27/19 17:25 WBC RBC Hgb Hct MCV MCH MCHC RDW Plt Count MPV Gran % Lymphocytes % Monocytes % Eosinophils % Basophils % Sodium Potassium Chloride Carbon Dioxide Anion Gap BUN Creatinine Estimated GFR Random Glucose Lactic Acid Calcium Total Bilirubin AST ALT Alkaline Phosphatase Total Protein Albumin Globulin Albumin/Globulin Ratio Amylase Lipase Urine Color Yellow Urine Appearance Clear Urine pH 7.5 Ur Specific [place] 1.025 Urine Protein Trace H Urine Glucose (UA) Negative Urine Ketones Negative Urine Blood Negative Urine Nitrite Negative Urine Bilirubin Small H Urine Urobilinogen 0.2 Ur Leukocyte Esterase Negative DVT/PE Assessment - Risk for VTE Risk for VTE: No Risk Level: Low Risk Assessment Date: 01/27/19 Risk Assessment Time: 19:33 VTE Orders Placed or Will Be Placed: Yes - Active Medicaitons Current Medications: Current Medications Hydromorphone HCl (Dilaudid) 0.5 mg IVP Q4H PRN PRN Reason: ABDOMINAL PAIN Sodium Chloride () 1,000 mls @ 125 mls/hr IV .Q8H PRN PRN Reason: LARGE VOLUME IV Last Admin: 01/28/19 07:20 Dose: 125 mls/hr Acetaminophen (Ofirmev) 1,000 mg in 100 mls @ 400 mls/hr IVPB Q6H PRN PRN Reason: ABDOMINAL PAIN Ciprofloxacin Lactate (Cipro) 400 mg in 200 mls @ 200 mls/hr IVPB Q12H [facility] Stop: 02/01/19 18:01 Last Infusion: 01/28/19 07:42 Dose: Infused Metronidazole/Sodium Chloride (Flagyl) 500 mg in 100 mls @ 100 mls/hr IVPB Q8H [facility] Stop: 02/01/19 17:01 Last Admin: 01/28/19 10:13 Dose: 100 mls/hr AMI Plan - Labs Result Diagrams: 01/27/19 16:38 01/27/19 17:01
--- NOTE | 2019-01-28 16:21 | Medical Records Consult ---
DATE OF CONSULTATION: 01/28/2019 REASON FOR CONSULTATION: Left lower quadrant pain. INDICATIONS: The patient is a 43-year-old male whom I saw approximately 2 weeks ago for acute uncomplicated diverticulitis. He was in the hospital for a couple of days and was sent home on some oral antibiotics. He states that even though he lives in [place], he came back down here yesterday due to some ongoing discomfort. He describes this as his left lower quadrant without much radiation. He states that he has been having temperatures around 99. He has been fatigued. He states that he has been moving his bowels and was taking oral ciprofloxacin as well as Flagyl. Currently in the hospital, he states he feels about the same, somewhat better. Repeat CT scan was done yesterday which revealed similar findings to his prior CT scan with acute sigmoid diverticulitis without abscess or perforation. Again, with his history, he states he has had this constant for about 8 years and is expressing extreme amounts of frustration here in the hospital today. He states that he has no insurance and therefore has not followed up with a aerodynamic consultant or outpatient CT scans in the past. PHYSICAL EXAMINATION: VITAL SIGNS: He is currently afebrile. His pulse is 61, his blood pressure is 109/72. HEART: Regular. LUNGS: Clear. ABDOMEN: Soft. There is some minimal left lower quadrant tenderness with deep palpation. There is no guarding, no rebound, no peritoneal signs noted. EXTREMITIES: No trace of edema. LABORATORY DATA: White count 6.9. Chemistries are all normal. I did review his CT scan with Radiology which does reveal acute uncomplicated sigmoid diverticulitis. This is most likely acute on chronic findings. IMPRESSION: Acute on chronic diverticulitis. PLAN: At this point, the patient and his and I had a long discussion. I let him know that I would ideally like to get him through this acute bout of diverticulitis and discuss elective operation due to the chronic nature of his diverticular issue. He did have a colonoscopy in the past. I cannot recall the exact year. Both he and his again expressed extreme frustration and want him to get better right away. I let him know that this certainly can take time and that taking him for an elective operation now may be a bit unsafe which would increase his complication rate including anastomotic leak and potential colostomy formation. They were having discussions about leaving the hospital AMA. He does live in [place] and I said he is certainly welcome to get a second opinion there or from somebody else in the [place] area. If he does leave, I did recommend him to stay on oral antibiotics as well as a low-residue diet. I did discuss this case in detail with the nurse practitioner as well. In an ideal situation, we would like to get him through this acute phase and do this operation electively. I did let him know that there are times when people have swollen diverticular disease that we are forced to take people sooner than we would like. However, I would like to give him a chance to get through this. At this point, again, he became very frustrated and essentially did not talk any further. CC: Husam Posada MD MTDJuan
[2019-01-29] MEDS: METRONIDAZOLE IVPB 500 MG/100 ML BAG IVPB SCH ×2 (01:08→09:19)
[2019-01-29] MEDS: 0.9 % SODIUM CHLORIDE 1000ML 1,000 ML IV PRN (04:00)
[2019-01-29] MEDS: CIPROFLOXACIN LACTATE/D5W 400 MG/200 ML BAG IVPB SCH (06:16)
--- NOTE | 2019-01-29 08:52 | Discharge Summary ---
Providers Discharge Summary Date: 01/29/19 Date of admission: 01/27/19 16:30 Expected Date of Discharge: 01/29/19 Attending physician: SRIKANTH HARRIS Primary care physician: Theresa Shipman N.P. Consults: Consult Orders 01/28/19 08:35 Consult NOW Consulting Provider: Nba Mckoy Physician Instructions: Reason For Exam: recurrent diverticulitis Physical Exam - Vital Signs Vital Signs: Vital Signs - Last 24 Hrs Temp Pulse Resp BP BP Pulse Ox 01/29/19 08:00 98.1 F 78 16 114/74 97 01/29/19 01:12 97.3 F L 77 18 132/80 97 01/28/19 18:00 98.1 F 69 16 138/85 95 01/28/19 14:20 97.8 F 122/71 01/28/19 09:10 97.8 F 67 16 122/71 95 - General General Appearance: Alert, Oriented x3, Cooperative, No acute distress Limitations: No limitations - Head Head exam: Atraumatic, Normocephalic - Eye Eye exam: Normal appearance - ENT ENT exam: Mucous membranes dry - Neck Neck exam: Normal inspection, Full ROM - Respiratory Respiratory exam: Normal lung sounds bilaterally - Cardiovascular Cardiovascular Exam: Regular rate, Normal rhythm, Normal heart sounds Peripheral Pulses: 2+: Radial (R), Radial (L) - GI/Abdominal GI/Abdominal exam: Soft, Hypoactive bowel sounds, Tenderness ( LUQ, LLQ) - Extremities Extremities exam: Normal inspection, Full ROM. negative: Pedal edema - Back Back exam: Reports: Normal inspection - Neurological Neurological exam: Alert, CN II-XII intact, Oriented X3 - Psychiatric Psychiatric exam: Normal affect, Normal mood - Skin Skin exam: Dry, Intact, Normal color, Warm Hospitalization - Hospitalization Admission Diagnosis: Abdominal pain. Failed outpatient treatment of diverticulitis - Problem List/Discharge Diagnosis (1) Abdominal pain Status: Acute Discharge Diagnosis: Abdominal location: unspecified location Qualified Code(s): R10.9 - Unspecified abdominal pain Base Code: R10.9 - UNSPECIFIED ABDOMINAL PAIN Comment: 01/29/19 - Worsening of abdominal pain since discharge from inpatient hospitalization for diverticulitis, pain is the same this am - CT abdomen/pelvis- minimal worsening of previous signomid wall thickening with surrounding fat stranding, still concern with potential of adenocarcinoma - CBC, CMP, lactic acid- unremarkable - IV hydration NS @ 125ml/hr - Dilaudid 0.5mg Q4hr PRN abdominal pain- has been refusing to use - Surgical consultation complete (2) Diverticulitis Status: Acute Base Code: K57.92 - DVTRCLI OF INTEST, PART UNSP, W/O PERF OR ABSCESS W/O BLEED Comment: 01/29/19 - CT abdomen/pelvis (previous CT 01/16/19 revealed inflammed fat containing abdominal wall hernia, focal wall thickening and inflammatory changes about the mid sigmoid colon with adjacent adenopathy, concerns with diverticulitis but could not entirely exclude primary adenocarcinoma) - Repeat CT abdomen/pelvis with slight worsening of sigmoid wal thickenss and fat stranding, no other acute changes. Recommend follow up colonoscopy. -Cipro 500mg IVPB BID, Flagyl 500mg TID IVPB - IV hydration - Pain control - Is not eating by choice, state he will eat when he gets home so he does not have frequent stooling - Consult with Dr Mckoy today- recommends continued IV Flagyl/Cipro x 24 more hours then can DC home tomorrow on 2 week course of PO Flagyl/Cipro. Follow up in his office in 2 weeks. (3) DVT prophylaxis Status: Acute Base Code: [id number] - Comment: 01/29/19 - Nursing to encourage frequent ambulation (4) Full code status Status: Acute Base Code: Z78.9 - OTHER SPECIFIED HEALTH STATUS Comment: 01/29 -full code - Hospitalization Course Disposition: Home, Self-Care Hospital Course: Eyad Castro is a 43 y/o male directly admitted to the floor from his PCP appointment for worsening LLQ abdominal pain, fatigue, frequent stooling. He was recently hospitalized for diverticulitis about 2 weeks ago and was at PCP for hospital follow up. He told provider he has been having low grade fevers, no higher than 100 degrees, poor appetite, significant fatigue to the point of needing a nap after showering. He reports he is still taking PO Flagyl and Cipro as discharged with. During previous hospitalization 01/16/19-01/17/19, Dr Mckoy was consulted for diverticulitis, inflammatory changes to bowel and possible primary adenocarcinoma- it was recommended he have colonoscopy after current diverticulitis episode has resolved .then elective partial colectomy due to recurrent diverticulitis. He has a history of recurrent diverticulitis, about 3 times yearly, for the last 6-7 years with associated frequent stooling ( 15 times per day). Denies any blood in stool or nausea. Is not established with GI. Medical history includes current every day smoker, chronic headaches s/p viral meningitis, diverticulitis, hernia repair 2010. Will directly admit for repeat CT abdomen/pelvis, transition PO antibiotics to Cipro 500mg BID and Flagyl 500mg TID IVPB, labs, IV hydration, reconsult surgery and/GI based on CT abdomen/pelvis results. Of note, patient is a vega pay patient, financially challenged. He has not followed up with GI or surgery since discharge from recent hospitalization 01/27/19: sitting in chair in no distress. in attendance. Agrees with plan of care and understands based on CT results may need to be transferred to [facility] for further consultations and/or urgent needs. 01/29/19- Hospital course unremarkable. No significant changes in abdominal pain. Has refused any pain medication. Has been afebrile. Has not been eating by choice, states he will eat when he gets home. States he will not eat for a day or so if he knows he will be away from home. He was advised this was not recommended as his nutritional state will be at risk, is at risk for worsening of condition, and at risk for poor healing after colon resection should he choose to do so as outpatient after this current diverticulitis flare has resolved. PCP: Theresa Shipman NP Procedures: Imaging and X-Rays 01/27/19 16:38 ABDOMEN/PELVIS W CONTRAST [CT] Stat Cardiology Procedures 01/27/19 16:48 EKG NOW Abnormal Labs: Abnormal Lab Results 01/27/19 01/27/19 Range/Units 17:01 17:25 ALT 86 H (<41) U/L Urine Protein Trace H (NEGATIVE) Urine Bilirubin Small H (NEGATIVE) Condition at Discharge: (1) Good Discharge Medications - Discharge Medications Prescriptions: Ciprofloxacin HCl [Cipro] 500 mg PO Q12HR 14 Days #28 tablet Metronidazole 500 mg PO Q8H 14 Days #42 tablet Ondansetron [Zofran Odt] 4 mg PO Q8H 14 Days #42 tab.rapdis Home Medications: Ambulatory Orders Ciprofloxacin HCl [Cipro] 500 mg PO Q12HR 14 Days #28 tablet 01/29/19 [Last Taken Unknown] Metronidazole 500 mg PO Q8H 14 Days #42 tablet 01/29/19 [Last Taken Unknown] Ondansetron [Zofran Odt] 4 mg PO Q8H 14 Days #42 tab.rapdis 01/29/19 [Last Taken Unknown] Discharge Plan - Discharge Instructions Activity at Discharge: Increase Activity as Tolerated Diet at Discharge: Other (low residue) Instructions: Diverticulitis (DC) Additional Instructions: Maintain adequate nutrition Drink Boost or Ashley Instant Breakfast Follow up with Dr Mckoy in 2 weeks Antibiotics extended x 2 more weeks Activity as tolerated Return to the ED if getting worse. Quality Measures - Quality Measures Quality Measures: Documentation of Current Medications in Medical Record, Screening for High Blood Pressure and F/U Documented - Current Medications Quality Measure: Measure #130: Documentation of Current Medications Documentation of Current Medications: <Current Medications Documented/Reviewed> [G8427] - Blood Pressure Screening Quality Measure: Screening for High Blood Pressure and Follow-Up Documented Does Patient Have Any of the Following: No Blood Pressure Classification: Pre-Hypertensive BP Reading Systolic Measurement: 122 Diastolic Measurement: 71 Screening for High Blood Pressure: < Pre-Hypertensive BP, F/U Documented > [ [id number]] Pre-Hypertensive Follow-up Interventions: Follow-up with rescreen every year. - Elder Abuse Suspicion Index EASI Reference Information: Kamilla CALLAWAY, Domingo C, Travis D, Alejandro Maloney.Development and validation of a tool to assist physicians identification of elder abuse: The Elder Abuse Suspicion Index (EASI ). Journal of Elder Abuse and Neglect, 2008; 20 (3): 276-300.
== END 2019-01-29 10:00 | disposition home or self-care (01) | DRG 392 ==
LOC: MEDSURG 16:30
PROVIDERS: ADMIT Internal Medicine; ATTEND Internal Medicine
DX: K57.92 Diverticulitis of intestine, part unspecified, without perforation or abscess without bleeding (principal); R53.83 Other fatigue; R50.9 Fever, unspecified; R19.4 Change in bowel habit; F17.210 Nicotine dependence, cigarettes, uncomplicated; Z86.61 Personal history of infections of the central nervous system
CPT/HCPCS: 74177; 80053; 81003; 82150; 83605; 83690; 85025; 87040; 93005; 99223; 99233; 99239